=== PATIENT | male | born 2000 | race American Indian/Alaskan Native ===

== ENCOUNTER 2025-09-22 08:15 | Emergency (ER) | payer BC, SELFPAY ==
[2025-09-22 08:28] VITALS: BP 159/94; PULSE 77; RESP 18; TEMP 36.9; O2SAT 98; BMI 39.5
--- NOTE | 2025-09-22 08:31 | PD.EDRME ---
Rapid Medical Screening Exam RME Arrival date/time: 09/22/25 08:15 25-year-old male presents to the Emergency Department for complaint of rectal bleeding today when he used the restroom Chief Complaint: General Adult/Misc Complain Time Seen by Provider: 09/22/25 08:19 Vital signs: Vital Signs Temperature 98.5 F 09/22/25 08:28 Pulse Rate 77 09/22/25 08:28 Respiratory Rate 18 09/22/25 08:28 Blood Pressure 159/94 H 09/22/25 08:28 Pulse Oximetry (%) 98 09/22/25 08:28 Oxygen Delivery Method Room Air 09/22/25 08:28 Vital signs reviewed by provider: Yes Exam: Clinically well-appearing does not appear look toxic Clinical Impression: Lab work ordered patient be seen in the ER for further evaluation
[2025-09-22 09:36] LABS: INR 1.0 (0.9-1.3); Partial Thromboplastin Time 24.2 Seconds (22.0-36.0); Prothrombin Time 10.2 Seconds (9.0-12.2)
[2025-09-22 09:37] LABS: Alanine Aminotransferase 68 U/L (10-49); Albumin, Serum 4.9 gm/dL (3.5-5.0); Albumin/Globulin Ratio 1.6 (1.2-2.2); Alkaline Phosphatase 88 U/L (46-116); Anion Gap 11 (7-16); Aspartate Amino Transferase 38 U/L (0-34); BUN/Creatinine Ratio 10 Ratio (12-20); Bilirubin,Total 0.4 mg/dL (0.3-1.2); Blood Urea Nitrogen 9 mg/dL (9-23); Calcium 9.2 mg/dL (8.3-10.6); Calcium (Corrected) 9.2 mg/dL (8.5-10.1); Carbon Dioxide 25.8 mMol/L (20.0-31.0); Chloride 107 mMol/L (98-107); Creatinine (Component) 0.9 mg/dL (0.6-1.3); Estimated Creatinine Clearance 159.3 mL/min (>60); Globulin 3.0 gm/dL (2.3-3.5); Glucose 107 mg/dL (74-106); Lipase 33 U/L (12-53); Osmolality,Calculated 285 (275-295); Potassium 4.2 mMol/L (3.4-5.1); Sodium 144 mMol/L (136-145); Total Protein 7.9 gm/dL (5.7-8.2); eGFR > 60 See Note
[2025-09-22 09:58] LABS: Basophils # (Auto) 0.0 Thou/mm3 (0.0-0.2); Basophils % (Auto) 1 % (0-2.5); Eosinophils # (Auto) 0.1 Thou/mm3 (0.0-0.5); Eosinophils % (Auto) 2 % (0-10); Hematocrit 42.6 % (41.0-53.0); Hemoglobin 14.9 g/dL (13.5-16.0); Immature Granulocytes Auto 0.02 Thou/mm3 (0.00-0.00); Lymphocytes # (Auto) 1.0 Thou/mm3 (1.0-4.8); Lymphocytes % (Auto) 19 % (10-50); Mean Corpuscular HGB Conc 35.0 g/dl (31.0-37.0); Mean Corpuscular Hemoglobin 31.8 pg (25.0-35.0); Mean Corpuscular Volume 91 fL (80-100); Monocytes # (Auto) 0.3 Thou/mm3 (0.0-0.8); Monocytes % (Auto) 6 % (0-12); Neutrophils # (Auto) 4.0 Thou/mm3 (1.8-7.7); Neutrophils % (Auto) 72 % (37-80); Nucleated Red Blood Cell # 0.00 Thou/mm3 (0.00-0.00); Nucleated Red Blood Cell % 0 /100 WBC (0); Platelet Count 278 Thou/mm3 (140-440); RDW Standard Deviation 41.6 fL (35.1-43.9); Red Blood Count 4.69 Miln/mm3 (4.50-5.90); White Blood Count 5.5 Thou/mm3 (3.8-10.6)
[2025-09-22 11:23] VITALS: BP 165/106; PULSE 77; RESP 16; TEMP 37.4; O2SAT 98
--- NOTE | 2025-09-22 11:30 | EDNOTE_ITS ---
<Statement entered by Caitlin Freire MD - 10/07/25 17:52> As co-signing physician, I was present and available for consult prn. I concur with the plan and care as documented by the midlevel provider. ED General RME/HPI General Chief complaint: General Adult/Misc Complain Stated complaint: BLOODY BM Time Seen by Provider: 09/22/25 08:19 Arrival date/time: 09/22/25 08:15 25-year-old male patient came in for evaluation regarding rectal bleeding. Patient had a bowel movement earlier today and noticed some blood in the stool, patient denies any rectal pain denies any abdominal pain denies any vomiting denies any dizziness denies any other complaints patient is not taking any blood thinner. Patient denies any similar episode in the past. No medication was taken prior to ER visit. RME / HPI RME / HPI narrative: 09/22/25 08:15 25-year-old male presents to the Emergency Department for complaint of rectal bleeding today when he used the restroom Exam: Clinically well-appearing does not appear look toxic Impression: Lab work ordered patient be seen in the ER for further evaluation Related Data Home Medications ?Medication ?Instructions ?Recorded ?Confirmed NO HX MEDS ##0 03/31/17 Previous Rx's ?Medication ?Instructions ?Recorded prednisone 20 mg tablet 20 mg PO BID #6 tabs 9 albuterol sulfate 90 mcg/actuation 2 puff inhalation Q 6H PRN 04/22/23 aerosol inhaler (Ventolin HFA) shortness of breath or wheezing #8.5 grams prednisone 20 mg tablet See Taper PO BID #6 tabs Allergies Allergy/AdvReac Type Severity Reaction Status Date / Time No Known Allergies Allergy Verified 09/22/25 08:18 Review of Systems Review of Systems Narrative Review of Systems: Review of system reviewed and within normal limits except mentioned in HPI ED Exam Narrative Physical exam: VITAL SIGNS: Reviewed. GENERAL APPEARANCE: Alert and interactive, follows commands, no acute distress, HEAD AND FACE: Non-traumatic. ENT: PERRL, pink conjunctivitis, eyelid no trauma, Mucous membrane moist. NECK: Supple, nontender, no nuchal rigidity. CHEST: No tenderness, no crepitus, no paradoxical movement, no retractions. LUNGS: Clear, well ventilated, symmetric, no rales, no wheezing, no ronchi, no stridor, good breath sounds bilaterally. HEART: Regular rate, regular rhythm, no murmur, no gallops. ABDOMEN: Soft, positive bowel sounds, nondistended, no guarding, nontender, no rebound, no masses, RECTAL: Deferred. GENITAL: Deferred. NEUROLOGICAL: Gross motor function intact sensory function intact, Appropriate for age. MUSCULOSKELETAL: low back nontender, full range of motion. EXTREMITIES: Nontender, full range of motion. SKIN: Color pink, dry, no rash, no lacerations, no abrasions, no contusions. LYMPHATICS: Deferred. Course Quality Measures none Orders Category Date Time Status CBC Stat Lab 09/22/25 09:08 Completed Comprehensive Metabolic Panel Stat Lab 09/22/25 09:08 Completed Lipase Stat Lab 09/22/25 09:08 Completed Partial Thromboplastin Time Stat Lab 09/22/25 09:08 Completed Prothrombin Time with INR Stat Lab 09/22/25 09:08 Completed Vital Signs Vital signs: Vital Signs Temperature 98.5 F 09/22/25 08:28 Pulse Rate 77 09/22/25 08:28 Respiratory Rate 18 09/22/25 08:28 Blood Pressure 159/94 H 09/22/25 08:28 Pulse Oximetry (%) 98 09/22/25 08:28 Oxygen Delivery Method Room Air 09/22/25 08:28 Discharge Plan Plan Patient Disposition: HOME (Self Care) Discharge Disposition comment: Stable on Prescriptions/Referrals Prescriptions/Med Rec: No Action prednisone 20 mg tablet 20 mg PO BID Qty: 6 0RF NO HX MEDS Qty: 0 prednisone 20 mg tablet See Taper PO BID Qty: 6 0RF Taper: Prednisone Taper 30 mg TWICE A DAY for 3 Days and 0 Hour albuterol sulfate [Ventolin HFA] 90 mcg/actuation HFA aerosol inhaler 2 puff inhalation Q6H PRN (Reason: shortness of breath or wheezing) Qty: 8.5 0RF Referrals: Mouna Rodriguez PA-C ([facility]) [Primary Care Provider] - In 1 week Problem List Clinical Impression: Bright red blood per rectum Patient/Caregiver Discharge Instructions Discharge Activity: activity as tolerated Education Materials: ED Lower GI Bleeding (Stable) Additional Instructions: Thank you for the opportunity for serving you today. You are stable for discharged . You are advised to: Follow-up with your PCP in 1 to 2 days Return to ED for worsening of symptoms Increase oral fluids Please ask your PCP for referral to GI specialist for further evaluation and possible outpatient colonoscopy Please monitor your blood pressure your blood pressure today was noted to be slightly elevated ask your PCP to monitor your blood pressure also. Print Language: Georgian Stand Alone Forms: Susu Award Info., Patient Portal Info Letter KACEY/BALAJI Supervising Physician KACEY/BALAJI Supervising Physician: MD Tani MDM Narrative MDM hospital course (for use when minimal MDM required): 25-year-old male patient came in for evaluation regarding rectal bleeding. Patient had a bowel movement earlier today and noticed some blood in the stool, patient denies any rectal pain denies any abdominal pain denies any vomiting denies any dizziness denies any other complaints patient is not taking any blood thinner. Patient denies any similar episode in the past. No medication was taken prior to ER visit. Clinically patient is not having any symptoms. Patient's CBC came back with no sign of anemia. CMP unremarkable. Results discussed with the patient. Patient was advised to follow-up with PCP, and for referral to GI specialist for further evaluation and possible outpatient colonoscopy. Patient's blood pressure was also elevated today 165/106. Patient was advised to monitor his blood pressure and follow-up with PCP. Patient stable for discharge home. Diagnosis Differential Diagnosis ED Complaint MDM: Diverticulum, internal hemorrhoids, bright red blood per rectum, colon Ca Diagnoses ruled out and/or further discussions: Bright red blood per rectum
== END 2025-09-22 11:51 | disposition home or self-care (01) ==
PROVIDERS: Nurse Practitioner Primary Care; Emergency Provider Emergency Medicine; PCP Nurse Practitioner Family
DX: K92.1 Melena (principal)
CPT/HCPCS: 36415; 80053; 83690; 85025; 85610; 85730; 99282